=== PATIENT | male | born 1985 | race African-American/Black ===

== ENCOUNTER 2016-11-16 13:57 | Emergency (ER) | payer MEDICARE, OTHER, MEDICAID ==
[2016-11-16 14:10] VITALS: BP 153/99
--- NOTE | 2016-11-16 14:37 | ER Document Report ---
ED Skin Rash/Insect Bite/Abscs - General Chief Complaint: Insect Bite Stated Complaint: RIGHT ARM POSSIBLE INSECT BITE Time Seen by Provider: 11/16/16 14:27 Notes: 31 yo male c/o possible spider bite to right forearm. TRAVEL OUTSIDE OF THE [place] IN LAST 30 DAYS: No - HPI Patient complains to provider of: Insect bite Onset: This morning Onset/Duration: Sudden Quality of pain: No pain Skin Character: Lesion Skin Temperature: Warm Exacerbated by: Denies Relieved by: Denies Similar symptoms previously: No Recently seen / treated by doctor: No - Related Data Allergies/Adverse Reactions: Penicillins Allergy (Verified 10/30/15 22:35) Past Medical History - General Information source: Patient - Social History Smoking Status: Never Smoker Frequency of alcohol use: None Drug Abuse: None Lives with: Family Family History: Reviewed & Not Pertinent, DM Patient has suicidal ideation: No Patient has homicidal ideation: No - Medical History Medical History: Other - sleep apnea, HTN Renal/ Medical History: Denies: Hx Peritoneal Dialysis Psychiatric Medical History: Reports: Hx Schizophrenia Past Surgical History: Reports: Hx Oral Surgery - Immunizations Hx Diphtheria, Pertussis, Tetanus Vaccination: Yes Review of Systems - Review of Systems Constitutional: No symptoms reported EENT: No symptoms reported Cardiovascular: No symptoms reported Respiratory: No symptoms reported Gastrointestinal: No symptoms reported Genitourinary: No symptoms reported Male Genitourinary: No symptoms reported Musculoskeletal: No symptoms reported Skin: See HPI Hematologic/Lymphatic: No symptoms reported Neurological/Psychological: No symptoms reported Physical Exam - Vital signs Vitals: Temp Pulse Resp BP Pulse Ox 98.6 F 85 18 153/99 H 97 11/16/16 14:09 11/16/16 14:09 11/16/16 14:09 11/16/16 14:09 11/16/16 14:09 Interpretation: Normal - General General appearance: Appears well, Alert - HEENT Head: Normocephalic, Atraumatic Eyes: Normal Pupils: PERRL - Respiratory Respiratory status: No respiratory distress Chest status: Nontender Breath sounds: Normal Chest palpation: Normal - Cardiovascular Rhythm: Regular Heart sounds: Normal auscultation Murmur: No - Abdominal Inspection: Normal Distension: No distension Bowel sounds: Normal Tenderness: Nontender Organomegaly: No organomegaly - Back Back: Normal, Nontender - Extremities General upper extremity: Normal inspection, Nontender, Normal color, Normal ROM , Normal temperature General lower extremity: Normal inspection, Nontender, Normal color, Normal ROM , Normal temperature, Normal weight bearing. No: Ian's sign - Neurological Neuro grossly intact: Yes Cognition: Normal Orientation: AAOx4 Ralph Coma Scale Eye Opening: Spontaneous [place] Coma Scale Verbal: Oriented Ralph Coma Scale Motor: Obeys Commands [place] Coma Scale Total: 15 Speech: Normal Motor strength normal: LUE, RUE, LLE, RLE Sensory: Normal - Psychological Associated symptoms: Normal affect, Normal mood - Skin Skin Temperature: Warm Skin Moisture: Dry Skin Color: Normal Skin irregularity: Tender indurated area - right volar forearm Course - Vital Signs Vital signs: Temp Pulse Resp BP Pulse Ox 98.6 F 85 18 153/99 H 97 11/16/16 14:09 11/16/16 14:09 11/16/16 14:09 11/16/16 14:09 11/16/16 14:09 Discharge - Discharge Clinical Impression: Insect bite Qualifiers: Encounter type: initial encounter Qualified Code(s): W57.XXXA - Bitten or stung by nonvenomous insect and other nonvenomous arthropods, initial encounter Condition: Stable Disposition: HOME, SELF-CARE Instructions: Insect Bites ([facility]), Antibiotic Therapy ([facility]), Topical Steroid Cream or Ointment ([facility]), Use of Diphenhydramine Additional Instructions: Take medications as prescribed cool compress to area follow up with primary care for any concerns Your blood pressure was elevated today please keep blood pressure diary and follow up with your primary care for further evaluation Prescriptions: Hydrocortisone/Oatmeal/Aloe/E [Hydrocortisone 1% Cream] 1 applic TP BID #15 g Sulfamethoxazole/Trimethoprim [Bactrim Ds Tablet] 1 each PO BID #20 tablet Forms: Elevated Blood Pressure
== END 2016-11-16 14:45 | disposition home or self-care (01) ==
LOC: ER 13:57
DX: S50.861A Insect bite (nonvenomous) of right forearm, initial encounter (principal); W57.XXXA Bitten or stung by nonvenomous insect and other nonvenomous arthropods, initial encounter; I10 Essential (primary) hypertension; Z88.0 Allergy status to penicillin
CPT/HCPCS: 99281